=== PATIENT | female | born 1960 | race Caucasian/White ===

== ENCOUNTER 2017-07-09 06:56 | Observation (INO) | payer OTHER ==
[2017-07-09] MEDS ORDERED: NS 1,000 ML IV ONE (06:58)
--- NOTE | 2017-07-09 07:20 | CPEKG ---
Heart Rate: 65 RR Interval: 923 P-R Interval: 168 QRSD Interval: 90 QT Interval: 440 QTC Interval: 458 P [place]: 64 QRS [place]: 51 T Wave [place]: 42 EKG Severity - NORMAL ECG - EKG Impression: SINUS RHYTHM Electronically Signed By: Kofi Wood 09-Jul-2017 08:28:23
[2017-07-09] MEDS ORDERED: BUPIVACAINE 0.5% 30 ML SDV ONE (07:33)
[2017-07-09] MEDS ORDERED: ISOPROTERENOL HCL/D5W 0.2 MG/50 ML BAG IV ONE ×3 (07:33→10:38)
[2017-07-09] MEDS ORDERED: HEPARIN 10,000 UNIT/10 ML MDV (1,000 UNIT/ML) ONE (07:33)
[2017-07-09] MEDS ORDERED: LIDOCAINE 1% 300 MG/30 ML SDV ONE (07:33)
[2017-07-09 07:42] LABS: PLATELET COUNT 178 10^3/uL (150-400)
[2017-07-09 07:51] LABS: INR 0.98 (0.83-1.16); PROTIME(PATIENT) 13.2 SEC (12.0-15.0)
--- NOTE | 2017-07-09 08:31 | PDGENHP ---
History & Physical Chief Complaint: symptomatic svt Relevant Physical Exam: [id number] [id number] Cardiorespiratory Assessment: svt for ablation
--- NOTE | 2017-07-09 08:33 | PDANEPAE ---
ANE Past Medical History - Pulmonary History Hx Sleep Apnea: No ANE Review of Systems Review of Systems: ANE Patient History - Allergies Allergies/Adverse Reactions: codeine [Codeine] Allergy (Mild, Verified 07/07/17 13:41) Vomiting - Home Medications Home Medications: Levothyroxine [Synthroid 75 mcg (RX)] 75 mcg PO Q2D 12/05/11 [Last Taken 07:00] Levothyroxine [Synthroid 88 mcg (RX)] 88 mcg PO Q2D 12/05/11 [Last Taken 07:00] Compounded Progesterone Cream 1 steve TP DAILY 07/07/17 [Last Taken 07/08/17 21:00 ] Herbals/Supplements -Info Only 1 ea PO DAILY 07/07/17 [Last Taken 07/07/17 08:00 ] Ibuprofen [Motrin (*)] 400 mg PO DAILY PRN 07/07/17 [Last Taken Unknown] Multivitamins [Multivitamin (*)] 1 each PO DAILY 07/07/17 [Last Taken 07/07/17 08:00] - Smoking Hx Smoking Status: Never smoked ANE Labs/Vital Signs - Labs Result Diagrams: 07/09/17 07:30 07/09/17 07:30 - Vital Signs Height: 165.1 cm Weight: 79.379 kg ANE Physical Exam - Airway Neck exam: FROM Mallampati Score: Class 1 Mouth exam: normal dental/mouth exam - Pulmonary Pulmonary: no respiratory distress, no rales or rhonchi, clear to auscultation - Cardiovascular Cardiovascular: regular rate and rhythym, no murmur, rub, or gallop - ASA Status ASA Status: III ANE Anesthesia Plan Anesthesia Plan: general endotracheal anesthesia
[2017-07-09] MEDS ORDERED: fentaNYL 100 MCG/2 ML INJ ONE (08:37)
[2017-07-09] MEDS ORDERED: ROCURONIUM 50 MG/5 ML VIAL ONE ×2 (08:37→09:58)
[2017-07-09] MEDS ORDERED: LIDOCAINE 2% 5 ML SDV ONE (08:37)
[2017-07-09] MEDS ORDERED: PROPOFOL/EMULSION 500 MG/50 ML BOTTLE IV ONE (08:37)
[2017-07-09] MEDS ORDERED: LIDOCAINE HCL 160 MG/4 ML LTA KIT TP ONE (08:37)
[2017-07-09] MEDS ORDERED: DEXAMETHASONE 4 MG/ML VIAL ONE (08:46)
[2017-07-09] MEDS ORDERED: ONDANSETRON 4 MG/2 ML VIAL ONE (08:46)
[2017-07-09] MEDS ORDERED: SUGAMMADEX SODIUM 200 MG/2 ML VIAL IVP ONE (08:46)
[2017-07-09] MEDS ORDERED: RANITIDINE 50 MG/2 ML VIAL ONE (08:46)
[2017-07-09] MEDS ORDERED: METOCLOPRAMIDE 10 MG/2 ML VIAL ONE (08:46)
[2017-07-09] MEDS ORDERED: MIDAZOLAM 2 MG/2 ML VIAL ONE ×2 (08:49→10:37)
[2017-07-09] MEDS ORDERED: PHENYLEPHRINE 10 MG/ML SDV ONE (09:14)
[2017-07-09] MEDS ORDERED: PHENYLEPHRINE HCL 100 MCG/ML SYR ONE (09:14)
[2017-07-09] MEDS ORDERED: epHEDrine SULFATE 10 MG/ML SYR ONE (09:40)
[2017-07-09] MEDS ORDERED: PROPOFOL 200 MG/20 ML VIAL ONE (10:31)
[2017-07-09] MEDS ORDERED: ALBUTEROL 3 ML DEYVIAL IH PRN (11:29)
[2017-07-09] MEDS ORDERED: NALOXONE HCL 0.4 MG/ML INJ IVP PRN (11:29)
--- NOTE | 2017-07-09 11:29 | POSTANESTH ---
Post Anesthetic Evaluation Cardiovascular Status: Normal, Stable, Similar to Pre-Op Cond Respiratory Status: Normal, Stable, Similar to Pre-op Cond. Level of Consciousness/Mental Status: Can Participate in Eval Pain Control: Adequate, Prn Tx Ordered Nausea/Vomiting Control: Adequate, Prn Tx Ordered Complications Possibly Related to Anesthesia: None Noted
--- NOTE | 2017-07-09 11:33 | EPPROC ---
Electrophysiology Procedure Note: ELECTROPHYSIOLOGIC STUDY AND CATHETER MEDIATED ABLATION OF FOCAL ATRIAL TACHYCARDIA PROCEDURES PERFORMED: 1. EP evaluation with RA/RV/LA pace/record, with arrhythmia induction 2. EP evaluation with RA/RV pace record, insert/reposition catheter, with arrhythmia induction 3. 74063 Intracardiac catheter ablation, SVT arrhythmogenic focus 4. 04430 3D mapping 5. Fluoroscopy INDICATION: Sustained SVT requiring ED visit Catheters and anesthesia: The patient arrived in the Electrophysiology Laboratory in the fasting state. The right clavicular region, right groin, and left groin area were prepped and draped in the usual sterile manner. Anesthesiologist Dr. Mal Rutherford administered general anesthesia. Appropriate non-invasive blood pressure, pulse oximetry and end-tidal CO2 monitoring was established. All catheters were placed percutaneously using the modified Seldinger technique , and advanced into position under fluoroscopic guidance. One #7 [place] deflectable octapolar electrode catheter was advanced to the His-bundle position via the left femoral vein (2mm spacing; except the proximal ring which was 25cm from the tip used for unipolar recordings). One #7 [place] deflectable catheter with 10 pairs of electrodes was placed via the left femoral vein into the coronary sinus. Kwasi catheter was placed in the RA. Programmed stimulation was performed from the right atrium, left atrium ( coronary sinus) and right ventricle. Parahisian pacing demonstrated all retrograde conduction over the AV node . There was no antegrade slow AV lizzie pathway conduction. Heparin was administered to keep ACT > 200 seconds. Programmed stimulation of right atrium during infusion of isoproterenol 4 mcg/ min induced an atrial tachycardia CL 360-380 ms. AV dissociation was induced with ventricular overdrive pacing confirming atrial tachycardia. A detailed 3D map of the right atrium and coronary sinus showed earliest atrial activation along the superior aspect of beto terminalis. Earliest atrial activation began 25 ms before the onset of the P wave with a negative deflection in the unipolar electrogram. RF applications were delivered to this site. First RF application terminated tachycardia. Further RF applications were delivered in this area. Programmed stimulation in the baseline state and during infusion of isoproterenol 1, 2 and 4 mcg/min post ablation was performed. No tachycardia could be induced. The catheters were removed. Sheaths were removed in the EP lab after applying subcutaneous purse string suture. The patient was transferred to the cardiovascular holding area in stable condition. There were no apparent complications. RESULTS A. Spontaneous Intervals: Pre ablation SCL 1330 ms AH 75 ms HV 50 ms Post ablation SCL 780 ms AH 60 ms HV 50 ms B. Antegrade AV lizzie function (decremental pacing) Pre ablation FPERP 550 ms WBB CL 540 ms Post ablation FPERP 370 ms WBB CL 360 ms C. Retrograde AV lizzie function (decremental pacing) Pre ablation FPERP 390 ms WBB CL380 ms CONCLUSIONS: 1. Focal right atrial tachycardia arising from superior aspect of beto terminalis. 2. Successful ablation of focal atrial tachycardia. 3. No apparent complications. Patient Problems: Problems Problem Status Onset Supraventricular tachycardia Acute
--- NOTE | 2017-07-09 11:49 | CPEKG ---
Heart Rate: 99 RR Interval: 606 P-R Interval: 184 QRSD Interval: 92 QT Interval: 368 QTC Interval: [address] [place]: [address] [place]: [address] [place]: -50 EKG Severity - NORMAL ECG - EKG Impression: SINUS RHYTHM Electronically Signed By: Juancarlos Ramos 10-Jul-2017 08:31:55
[2017-07-10 04:43] LABS: PLATELET COUNT 171 10^3/uL (150-400)
[2017-07-10 04:59] LABS: CREATINE KINASE 65 IU/L (0-156)
[2017-07-10] MEDS ORDERED: LEVOTHYROXINE 75 MCG TAB PO SCH (06:00)
[2017-07-10] MEDS ORDERED: ASPIRIN 81 MG CHEWABLE TAB PO SCH (09:00)
--- NOTE | 2017-07-10 09:11 | CPEKG ---
Heart Rate: 62 RR Interval: 968 P-R Interval: 164 QRSD Interval: 98 QT Interval: 424 QTC Interval: 431 P [place]: 75 QRS [place]: 67 T Wave [place]: 66 EKG Severity - NORMAL ECG - EKG Impression: SINUS RHYTHM Electronically Signed By: Kofi Wood 10-Jul-2017 09:46:16
--- NOTE | 2017-07-10 10:16 | ECHO ---
[email or web address] [address] [address] Main: [phone] Fax: Transthoracic Echocardiogram Name: RADHA STREETER MR#: [id number] Study Date: 07/10/2017 Study Time: 09:24 AM Date of : 1960 Age: 56 year(s) Height: 165.1 cm (65 in.) Weight: 79.38 kg (175 lb.) BSA: 1.87 m2 Gender: Female Examination: Echo Indication: Post EP Image Quality: Contrast: Requested by: Kofi Wood BP: 65 mmHg/175 mmHg Heart Rate: Rhythm: Indication: Post EP Procedure Staff Retail Banker: Oscar Crawford RDCS Reading Physician: Requesting Provider: Measurements: Chambers Valvular Assessment AV/MV Valvular Assessment TV/PV Normal Normal Normal Name Value Range Name Value Range Name Value Range Ao Zohra (MM): 2.6 cm (2.2 cm-3.7 MV E Vmax: 0.93 m/s ( - ) PV Vmax: 0.92 m/s (0.6 m/s-0.9 cm) MV A Vmax: 0.60 m/s ( - ) m/s) IVSd (2D): 0.7 cm (0.6 cm-1.1 MV E/A: 1.55 ( - ) PV PGmax: 3 mmHg ( - ) cm) LVDd (2D): 4.8 cm (3.9 cm-5.3 cm) LVDs (2D): 2.8 cm (2.1 cm-4 cm) LVPWd (2D): 0.8 cm ( - ) LVEF (2D): 71 (>=54 %) Continued Measurements: Valvular Assessment AV/MV Name Value MV E' Septal: 0.08 m/s MV E/E' Septal: 11.10 MV E/E' Lateral: 10.50 Findings: Left Ventricle: Normal size left ventricle. No LV hypertrophy. Normal global systolic LV function. EF is 71 %. No regional wall motion abnormality. Normal diastolic LV function. Right Ventricle: Normal size right ventricle. Patient: RADHA STREETER Study Date: 07/10/2017 Page 1 of 2 09:24 AM Left Atrium: The left atrium is normal in size. Right Atrium: The right atrium is normal in size. Mitral Valve: The mitral valve is normal in appearance and function. Aortic Valve: The aortic valve is normal in appearance and function. Tricuspid Valve: The tricuspid valve is normal in appearance and function. Pulmonic Valve: The pulmonic valve is normal in appearance and function. Aorta: The aorta is normal. Pericardium: No pericardial effusion. (No Signature Object) Patient: RADHA STREETER Study Date: 07/10/2017 Page 2 of 2 09:24 AM [id number]
[2017-07-10 11:33] VITALS: BP 128/83
--- NOTE | 2017-07-10 12:12 | GDS ---
[f rep st] DISCHARGE SUMMARY DISCHARGE DIAGNOSIS: Right atrial tachycardia status post ablation. HOSPITAL COURSE: For detailed H and P, please see prior dictation. Briefly, the patient is a 56-year-old female who was admitted to [facility] recently with a 2 -hour episode of SVT. This was associated with presyncope, neck discomfort, and jaw pain. Her SVT was documented at 187 beats per minute and did terminate with adenosine. She had a consultation with Dr. Kofi Wood and ultimately decided to proceed with an EP study and ablation. This was performed on July [address] Wood, and she was identified to have a right atrial tachycardia which was ablated with good results. The procedure was uncomplicated. The following morning, she denied any chest discomfort or palpitations. She was monitored on telemetry and remained in normal sinus rhythm. Her troponin peaked at 0.074. Her EKG the day of discharge showed normal sinus rhythm with heart rate of 62 and an incomplete right bundle branch block. Her echocardiogram revealed preserved LV function without any evidence of pericardial effusion. PHYSICAL EXAMINATION: GENERAL: Patient appears in no acute distress. VITALS: Blood pressure 121/73, heart rate 72, oxygen saturation 97% on room air, afebrile. LUNGS: Clear to auscultation. No wheezes, rhonchi, or crackles auscultated. CARDIAC: Regular rate and rhythm without any significant murmurs , rubs, or gallops appreciated. EXTREMITIES: Bilateral groins where access was obtained for the EP study and ablation are clean, intact, without any evidence of infection or hematoma. DISCHARGE MEDICATIONS: Aspirin 81 mg daily, Synthroid 88 mcg every other day and 75mcg every other day, multivitamin daily, herbal supplement daily, progesterone cream daily, ibuprofen p.r.n. for pain. PLAN: The patient is currently stable and ready for discharge home. She has been given groin precautions. She is scheduled to follow up with Dr. Wood on September 04 at 11:30. /[id number]/MODL MTDD
[2017-07-11] MEDS ORDERED: LEVOTHYROXINE 88 MCG TAB PO SCH (06:00)
== END 2017-07-10 12:27 | disposition home or self-care (01) ==
LOC: FCATH 06:56 → F2W 11:20
PROVIDERS: ADMIT Internal Medicine Cardiovascular Disease; ATTEND Internal Medicine Cardiovascular Disease
DX: I47.1 Supraventricular tachycardia (principal)
CPT/HCPCS: 93005; 93306; 93613; 93621; 93623; 93653; C1730; C1732; C1893; G0378; C1731; J1100; J1644; J2250; J2370; J2405; J2704; J2765; J2780; J3010